=== PATIENT | male | born 2000 | race Caucasian/White ===

== ENCOUNTER 2025-04-25 15:47 | Outpatient (REF) | payer BC, SELFPAY ==
--- OUTSIDE RECORDS SUMMARY | 2025-04-25 14:30 | XMS_ITS | Encounter Summary ---
Author Organization [employer] Address [address] [place] [address] [address] [place] [address] Care Team Providers Care Long Term Care Pharmacist Name Role Phone Sanaz Khan NP Primary Care Provider [phone] Encounter Details Date Type Department Care Team (Late st Contact Info) Description 04/25/2025 2:30 PM EST Office Visit [facility] [address] [place] [address] Sanaz Khan NP [address] [place] [address] Healthcare maintenance (Primary Dx); Graves disease; Constipation, unspecified constipation type; Fatigue, unspecified type; Chronic gastritis without bleeding, unspecified gastritis type Social History Tobacco Use Types Packs/Day Years Used Date Smoking Tobacco: Never Passive Smoke Exposure: Never Smokeless Tobacco: Never Tobacco Cessation:Counseling Given: Not Answered Sex and Gender Information Value Date Recorded Sex Assigned at Male 03/15/2025 11:40 AM EST Legal Sex Male 11:37 AM EST Gender Identity Male 04/12/2025 9:14 AM EST Sexual Orientation Straight 04/12/2025 9: 14 AM EST documented as of this encounter Last Filed Vital Signs Vital Sign Reading Time Taken Comments Blood Pressure 118/78 04/25/2025 2:40 PM EST Pulse 104 04/25/2025 2:40 PM EST Temperature 36.3 C (97.4 F) 04/25/2025 2:40 PM EST Respiratory Rate 16 04/25/2025 2:40 PM EST Oxygen Saturation 99% 04/25/2025 2:40 PM EST Inhaled Oxygen Concentration - - Weight 84.1 kg (185 lb 8 oz) 04/25/2025 2:40 PM EST Height 185.8 cm (6' 1.13 ) 04/25/2025 2:40 PM ES T Body Mass Index 24.39 04/25/2025 2:40 PM EST documented in this encounter Miscellaneous Notes * Assessment & Plan Note - Sanaz Khan NP - 04/25/2025 2:30 PM ESTAssociated Problem(s): Graves disease - Hypothyroidism previously diagnosed, currently off methimazole for two years. Low energy noted, possible recurrence of thyroid dysfunction. Will recheck labs today. Orders: TSH W/Reflex to FT4; Future * Assessment & Plan Note - Sanaz Khan NP - 04/25/2025 2:30 PM ESTAssociated Problem(s): Chronic gastritis without bleeding - Persistent symptoms despite current therapy, including nausea, vomiting, bloating, and decreased appetite. Endoscopy performed April 09, 2025. - Advised to continue esomeprazole and Pepcid as directed by GI. Recommended follow-up with GI clinic due to lack of symptom relief. -Discussed relationship of nervous system activation and digestive health. Encouraged exploring healthy ways to manage stress. -Prescribed psyllium fiber supplement to support regularity and gut microbiome health. Advised dietary modifications: avoid alcohol, spicy, fatty, salty, and acidic foods; focus on vegetables, whole grains, and lean protein. Encouraged hydration. Follow-up in three months to reassess. documented in this encounter Plan of Treatment Scheduled Orders Name Type Priority Associated Diagnoses Orde r Schedule CBC auto differential Lab Routine Healthcare maintenance Fatigue, unspecified type Expected: 04/25/2025 (Approximate), Expires: 04/25/2026 Comprehensive Metabolic Panel Lab Routine Healthcare maintenance Expected: 04/25/2025 (Approximate), Expires: 04/25/2026 TSH W/Reflex to FT4 Lab Routine Graves disease Constipation, unspecified constipation type Fatigue, unspecified type Expected: 04/25/2025 (Approximate), Expires: 04/25/2026 documented as of this encounter Visit Diagnoses Diagnosis Healthcare maintenance- Primary Graves disease Toxic diffuse goiter without mention of thyrotoxic crisis or storm Constipation, unspecified constipation type Fatigue, unspecified type Chronic gastritis without bleeding, unspecified gastritis type documented in this encounter Care Teams Long Term Care Pharmacist Relationship Specialty Start Date End Date Sanaz Khan NP [address] [place] [address] PCP - General Nurse Practitioner 04/25/25 documented as of this encounter
--- OUTSIDE RECORDS SUMMARY | 2025-04-25 16:03 | XMS_ITS | Encounter Summary ---
Author Organization [facility] Address [address] [place] [id number] Care Team Providers Care Labor Utilization Superintendent Name Role Phone Sanaz Khan CORPORATE TRAINING MANAGER Primary Care Provider [phone] Reason for Visit * Reason Onset Date Comments FOLLOW UP APPT 04/06/2025 Encounter Details Date Type Department Care Team ([facility] st Contact Info) Description 04/06/2025 Telephone Gastroenterology - [place] [address] [facility] 175 [facility] [address] [place] [address] Denice Crocker PA 299 [facility] [address] [place] [address] Social History Tobacco Use Types Packs/Day Years Used Date Smoking Tobacco: Never Smokeless Tobacco: Never Interpersonal Safety Answer Date Record ed Physical Abuse Unrecognized value 04/06/2025 Verbal Abuse Unrecognized value 04/06/2025 Sex and Gender Information Value Date Recorded Sex Assigned at Not on file Legal Sex Male 12:40 PM EST Gender Identity Not on file Sexual Orientation Not on file documented as of this encounter Progress Notes * Eva Carrillo - 04/06/2025 10:32 AM EST LEFT MESSAGE FOR PATIENT TO RETURN CALL, PLEASE SCHEDULE 6 MONTH FOLLOW UP APPT. WITH [facility]Y documented in this encounter Plan of Treatment Not on file documented as of this encounter Goals Goal Patient Goal Type Associated Problems Recent Progress Patient-Stated? Author Autogenerat ed Goal Care Plan Autogenerated Problem No Dino Donato documented as of this encounter Visit Diagnoses Not on filedocumented in this encounter Additional Health Concerns Active Problems Noted Date Diagnosed Date Autogenerated Problem 04/05/2025 documented as of this encounter Care Teams Labor Utilization Superintendent Relationship Specialty Start Date End Date Sanaz Khan FNP [address] [place] [address] PCP - General Family Medicine 04/06/25 documented as of this encounter
--- OUTSIDE RECORDS SUMMARY | 2025-04-25 16:03 | XMS_ITS | Encounter Summary ---
Author Organization [facility] Address [address] [place] [id number] Care Team Providers Care Supervisor Machine Setter Name Role Phone Sanaz Khan SENIOR PROJECT ACCOUNTANT Primary Care Provider [phone] Encounter Details Date Type Department Care Team ([facility] st Contact Info) Description 04/09/2025 Results Follow-Up Gastroenterology - [address] [facility] [address] [place] [phone] Cecilio Sweet DO 299 [facility] [address] [place] [address] Social History Tobacco Use Types Packs/Day Years [...] as of this encounter Progress Notes * Mayda Richter MA - 04/17/2025 11:22 AM EST Spoke with pt regarding results and recommendations * Mayda Richter MA - 04/17/2025 10:42 AM EST LM for pt to call back. * Yuni Hazel - 04/11/2025 3:12 PM EST Pt is calling to get verbal clarification on his results. * Mayda Richter MA - 04/11/2025 8:44 AM EST Last read by Seng Haas at 2:48PM on 04/10/2025. * Cecilio Sweet DO - 04/09/2025 12:12 PM EST Please let the patient know that his esophagus and stomach biopsies showed evidence of chronic inflammation secondary to acid. No evidence of inflammation, infection, precancer lesions or allergic conditions have been identified. My recommendation is that he tries esomeprazole 20 mg daily for the next 6 to 8 weeks. I do not recommend that he take Carafate. He can take his Pepcid at night for breakthrough symptoms. If his symptoms persist, he should follow-up with [place] in GI clinic as instructed. documented in this encounter Plan of Treatment Not on file documented as of this encounter Goals Goal Patient Goal Type Associated Problems Recent Progress Patient-Stated? Author Autogenerat ed Goal Care Plan Autogenerated Problem No Tanmay Dino documented as of this encounter Visit Diagnoses Not on filedocumented in this encounter Additional Health Concerns Active Problems Noted Date Diagnosed Date Autogenerated Problem 04/05/2025 documented as of this encounter Care Teams Supervisor Machine Setter Relationship Specialty Start Date End Date Sanaz Khan FNP [address] [place] [id number] PCP - General Family Medicine 04/06/25 documented as of this encounter
--- OUTSIDE RECORDS SUMMARY | 2025-04-25 16:03 | XMS_ITS | Encounter Summary ---
Author Organization [facility] Address [address] [place] [address] Phone Care Team Providers Care Power Operator Name Role Phone Nate Umanzor MD Primary Care Provider [phone] Encounter Details Date Type Department Care Team (Late st Contact Info) Description 12/10/2016 Conversion Encounter [facility] - [address] [address] Social History Tobacco Use Types Packs/Day Years Used Date Smoking Tobacco: Never Assessed Sex and Gender Information Value Date Recorded Sex Assigned at Not on file Legal Sex Male 4:12 PM EDT Gender Identity Male 02/13/2021 7:41 AM EDT Sexual Orientation Not on file documented as of this encounter Plan of Treatment Not on file documented as of this encounter Visit Diagnoses Not on filedocumented in this encounter Care Teams Power Operator Relationship Specialty Start Date End Date Nate Umanzor MD [address] [place] [id number] PCP - General Pediatrics 06/09/17 documented as of this encounter
--- OUTSIDE RECORDS SUMMARY | 2025-04-25 16:03 | XMS_ITS | Clinical Summary ---
Author Organization [facility] Address [address] [place] [address] Phone Care Team Providers Care Coil Winder Repair Name Role Phone Nate Umanzor MD Primary Care Provider [phone] Allergies Active Allergy Reactions Criticality Noted Date Comments Penicillin V Rash Low Medications methimazole 5 MG tablet Take 5 mg by mouth. 1.5 tab Qam, 1 tab at night 3 7 Active Multiple Vitamins-Minera ls (MULTIVITAMIN ADULT EXTRA C PO) Take 1 tablet by mouth daily. Active chlorhexidine 0.12 % solution SWISH AND SPIT 15 ML BY MOUTH IN THE MORNING AND IN THE EVENING FOR 2 WEEKS 3 Active albuterol HFA 108 (90 Base) MCG/ACT inhalerIndicati ons:Bronchospas m Inhale 2 puffs every 4 (four) hours as needed for wheezing or shortness of breath. 2 Units 4 Active Spacer/Aero-Hol ding Chambers deviceIndicatio ns:Bronchospasm Use as directed 1 each 4 Active Active Problems Problem Noted Date Diagnosed Date Bronchospasm 06/03/2023 Assessment & Plan (06/03/2023 12:04 PM EST): Coarse ronchi bilaterally, suspect reactive airway disease vs atypical pneumonia. Will trial albuterol for 1-2 weeks while completing course of cefdinir for sinusitis, if no improvement, will do azithromycin course for walking pneumonia. Weight loss 05/28/2023 Nevus 10/15/2016 Family history of aortic aneurysm 11/13/2015 Family disruption due to divorce 03/11/2015 Scoliosis 03/11/2015 Assessment & Plan (08/16/2017 11:31 AM EDT): Minimal assymetry of shoulders but spine does not appear rotated Graves disease 03/08/2015 Overview (05/28/2023): Followed by [facility] 05/17/17: clinically and biochemically hyperthyroid. Methimazole increased. Maintained on methimazole suppression, but if not in remission over next ~1y then plan permanent treatment (thyroid radioablation) 01/2018 endo, Dr Morfin: euthyroid on bid methimazole.Repeat TFTs with a TSI (thyroid stimulating immunoglobulin) in 3-4 mo and return to endo in 6 mos. 10/03/18: Labs: normal TSH and T4; elevated TSI 09/13- will recheck labs tsh, t4, and TRAbs. Stable on methimazole, will adjust depending on labs. Referral to Dr. Moody (surgeon). Follow up in 6M 05/28/23: Stopped methimazole ~1Y ago. Now with weight loss but not other symptoms of hyperthyroidism. Last TFTs 11/2022 wnl Assessment & Plan (05/28/2023 12:44 PM EST): Stopped methimazole ~1Y ago. Now with weight loss but not other symptoms of hyperthyroidism. Last TFTs 11/2022 wnl Assessment & Plan (12/02/2022 5:24 PM EDT): Weaned off methimazole ~6mo ago. Reports doing well until past few weeks with recurrence of chest pain and palpitations. Reports similar symptoms at onset of diagnosis. No endo follow up since weaning off medication. - Concern for possible recurrence of Graves, although without GI symptoms, no temperature sensitivity, no weight loss. - Will obtain thyroid labs, TSH, T3, t4 Assessment & Plan (05/01/2020 9:18 AM EST): Reduced methimazole dose ~ 12/2019 with goal of re-trying taper off. Assessment & Plan (08/16/2017 9:57 AM EDT): Has had for yrs and has been txed with methimazole 1.5 tab bid [place] [facility] [place] and seasonal allergies 02/10/2015 Migraine 02/10/2015 Assessment & Plan (05/01/2020 9:18 AM EST): Few OLSON related to screens but no overt migraines in past year Assessment & Plan (08/16/2017 9:58 AM EDT): rare Myopia 02/10/2015 Assessment & Plan (05/01/2020 9:19 AM EST): Wears contacts, new Rx in 11/2019 Resolved Problems Problem Noted Date Diagnosed Date Resolved Date Creatinine elevation 04/10/2020 021 Overview (04/10/2020): 04/10/2020 at [facility] pediatric ED; possibly due to OTC supplement or more likely due to hypertension; [facility] nephrology consulted on the phone while in ED, recommended follow-up with them and ED for SBP >150 and likely initiation/trial of labetalol Assessment & Plan (05/01/2020 12:14 PM EST): F/u creatinine normal. He thinks his high BP was from stress related to school and college applications. Encounters Date Type Department Care Team Description 04/04/2025 Telephone [facility] Pediatrics - [address] [address] Jena Rosenbaum LPN Discharge Follow-Up - ED from Last 3 Months Immunizations Immunization Administration Dates Next Due DTaP 09/14/2006, 4,02/16/2003,12/13,2002 DTaP 5 02/15/2004, 3,2002,10/13 HPV Vaccine 9 Valent 08/16/2017,03/13/2016 Hep A, ped/adol 05/01/2020 Hep B, ped/adol 05/18/2003, 4,2002,09/12,2002,2002 Hib (PRP-T) 11/14/2003, 4,02/16/2003,02/16,2002,2002,2002 ,2002 IPV 09/14/2006, 4,05/18/2003,12/13,2002,2002,2002 Influenza 03/03/2006 Influenza, injectable, quadr ivalent, preservative free 05/01/2020,03/13/2016,03/08/2015 Influenza, injectable, trivalent 04/24/2010 Influenza, intranasal, quadrivalent 02/12/2014,1 Influenza, intranasal, trivalent 04/22/2012,02/24 MMR 08/24/2003,08/24/2003 MMRV 09/14/2006 Meningococcal Conj (Menactra) MCV4P 05/01/2020,1 Pneumococcal Conjugate 02/15/2004,2003,02/16/2003,02/16,2002,2002,2002 Tdap 02/12/2014 Varicella 08/24/2003,08/24/2003 Family History Relation Name Status Comments Father Alive Father's Brother Paternal Un rodrigo: [seizures] Mother Alive Mother: [hearin g problem] Other 1 [seizures] Other 2 Alive Other 3 Alive Other 4 Alive [hearing proble m] Social History Tobacco Use Types Packs/Day Years Used Date Smoking Tobacco: Never Smokeless Tobacco: Never Comments:No vaping Alcohol Use Standard Drinks/Week Comments Never 0 (1 standard drink = 0.6 oz pur e alcohol) Hunger/Food Answer Date Recorded In the last 12 months, did y ou or your family ever eat less than you felt you should because there wasn't enough money for food? No 05/01/2020 Stable Housing Answer Date Recorded Are you worried that in the next 2 months you may not have stable housing? No 05/01/2020 Transportation Concerns Answer Date Rec orded In the last 12 months, have you or your family ever had to go without healthcare because you didn't have a way to get there? No 05/01/2020 Hazards in Home Answer Date Recorded Think about the place you li ve. Do you have problems with any of the following? Pests (mice or roaches), mold, no/not working smoke detectors, water leaks, no window guards. No 2020 Financing Utilities Answer Date Recorde d In the last 12 months, has t he electric, gas, oil, or water company threatened to shut off your services in your home? No 05/01/2020 Safety at Home Answer Date Recorded Are you or your family worried about feeling saf e in your home? No 05/01/2020 Outside Support Answer Date Recorded Do you feel that you need mo re support from other people or programs to help you care for yourself or your family? No 05/01/2020 Understanding Health Concerns Answer Da te Recorded Do you need help understandi ng your or your child's healthcare needs (diagnosis, medications, plan, etc.)? No 05/01/2020 Financing Health Concerns Answer Date R ecorded In the last 12 months, was t here a time when your child needed to see a doctor or get medications or supplies but could not because of cost? No 05/01/2020 Missing School or Work Answer Date Philip rded Did you or your child miss s chool or work because of a health problem that could have been avoided? No 05/01/2020 Sex and Gender Information Value Date Recorded Sex Assigned at Not on file Legal Sex Male 4:12 PM EDT Gender Identity Male 02/13/2021 7:41 AM EDT Sexual Orientation Not on file Last Filed Vital Signs Vital Sign Reading Time Taken Comments Blood Pressure 121/86 05/28/2023 9:59 AM EST Pulse 93 06/03/2023 11:07 AM EST Temperature 36.4 C (97.5 F) 06/03/2023 11:07 AM EST Respiratory Rate - - Oxygen Saturation 99% 06/03/2023 11:07 AM EST Inhaled Oxygen Concentration - - Weight 76.7 kg (169 lb 3.2 oz) 06/03/2023 11:07 AM EST Height 184.8 cm (6' 0.75 ) 05/01/2020 8:52 AM ES T Body Mass Index - - Plan of Treatment Health Maintenance Due Date Last Done Comments HIV Screening 2017 Men B Vaccine (1 of 2 - Standard) 2018 Hepatitis C Screening 2020 Hepatitis A Vaccines (2 of 2 - 2-dose series) 10/29/2020 05/01/2020 DTaP,Tdap,and Td Vaccines (7 - Td or Tdap) 02/13/2024 02/12/2014, 09/14/2006, 02/15/2004, Additional history exists Influenza Vaccines (#1) 2024 05/01/19, 03/13/2016, 03/08/2015, Additional history exists COVID-19 Vaccine (2024-05 6 season) 2024 05/18/2021, 10/11/2020, 09/09/2020 Hepatitis B Vaccines Completed 05/18/2003, 05/18/2003, 2002, Additional history exists HIB Vaccines Completed 11/14/2003, 10/25, 02/16/2003, Additional history exists Pneumococcal Vaccine Completed 02/15/2004, 02/15/2004, 02/16/2003, Additional history exists IPV Vaccines Completed 09/14/2006, 04/27, 05/18/2003, Additional history exists MMR Vaccines Completed 09/14/2006, 07/27, 08/24/2003 Varicella Vaccines Completed 09/14/2006, 0 08/24/2003, 08/24/2003 HPV Vaccines Completed 08/16/2017, 03/13/2016 Meningococcal Vaccine Completed 05/01/2020, 014 Insurance [facility] PPO Care Teams Coil Winder Repair Relationship Specialty Start Date End Date Nate Umanzor MD [address] [place] [id number] PCP - General Pediatrics 06/09/17
--- OUTSIDE RECORDS SUMMARY | 2025-04-25 16:03 | XMS_ITS | Encounter Summary ---
Author Organization [facility] Address [address] [place] [address] Phone Care Team Providers Care Asset Protection Assistant Name Role Phone Nate Umanzor MD Primary Care Provider [phone] Encounter Details Date Type Department Care Team (Late st Contact Info) Description 12/02/2016 Conversion Encounter [facility] Pediatrics - [address], [address] [place] [address] Nate Umanzor MD [address] [place] [address] Social History Tobacco Use Types Packs/Day Years [...] on filedocumented in this encounter Care Teams Asset Protection Assistant Relationship Specialty Start Date End Date Nate Umanzor MD [address] [place] [address] PCP - General Pediatrics 06/09/17 documented as of this encounter
--- OUTSIDE RECORDS SUMMARY | 2025-04-25 16:04 | XMS_ITS | Encounter Summary ---
Author Organization [employer] Address [address] [place] [address] [address] [place] [address] Care Team Providers Care Cake Mixer Name Role Phone Sanaz Khan NP Primary Care Provider [phone] Encounter Details Date Type Department Care Team (Latest Contact Info) Description 04/25/2025 Travel Social History Tobacco Use Types Packs/Day Years Used Date Smoking Tobacco: Never Passive Smoke Exposure: Never Smokeless Tobacco: Never Sex and Gender Information Value Date Recorded Sex Assigned at Male 03/15/2025 11:40 AM EST Legal Sex Male 11:37 AM EST Gender Identity Male 04/12/2025 9:14 AM EST Sexual Orientation Straight 04/12/2025 9: 14 AM EST documented as of this encounter Plan of Treatment Not on file documented as of this encounter Visit Diagnoses Not on filedocumented in this encounter Care Teams Cake Mixer Relationship Specialty Start Date End Date Sanaz Khan NP [address] [place] [address] PCP - General Nurse Practitioner 04/25/25 documented as of this encounter
--- OUTSIDE RECORDS SUMMARY | 2025-04-25 16:04 | XMS_ITS | Clinical Summary ---
Author Organization [facility] Address [address] [place] [address] Phone Care Team Providers Care School Psychology Specialist Name Role Phone Sanaz Khan SPEEDY Primary Care Provider [phone] Allergies Active Allergy Reactions Criticality Noted Date Comments Penicillins Hives,Rash Low 11/19/2021 Medications ondansetron ODT (ZOFRAN-ODT) 4 mg disintegrating tablet Let 1 tablet dissolve under the tongue three times daily as needed for nausea or vomiting. 10 tablet 5 Active famotidine (PEPCID) 20 mg tablet Take 1 tablet (20 mg total) by mouth 2 (two) times a day for 15 days. 30 tablet 5 04/18/20 25 sucralfate (CARAFATE) 1 gram tablet Take 1 tablet (1 g total) by mouth 4 (four) times a day for 7 days. 28 each 5 04/10/20 25 Encounters Date Type Department Care Team Description 04/17/2025 Telephone Gastroenterology - [place] [facility] 175 [facility] [address] [place] [address] Alfredo Sweet DO 04/09/2025 Results Follow-Up Gastroenterology - [address] [facility] [address] [place] [address] Alfredo Sweet DO 04/06/2025 11:28 AM EST Anesthesia Event [facility] Endoscopy [address] [place] [address] Cam José MD 04/06/2025 9:26 AM EST - 04/06/2025 11:59 PM EST Hospital Encounter [facility] Endoscopy [address] [place] [address] Cam José MD Cal, Nicolas, DO Kapplan, Jacob A, CRNA Epigastric abdominal pain; Nausea and vomiting, unspecified vomiting type; Abdominal bloating; Gastroesophageal reflux disease, unspecified whether esophagitis present Discharge Disposition: Home or Self Care 04/06/2025 Telephone Gastroenterology - [place] [address] [place] [phone] Denice Crocker PA 04/05/2025 11:10 AM EST Consult Gastroenterology - [address] [facility] [address] [place] [phone] Denice Crocker PA Epigastric abdominal pain (Primary Dx); Nausea and vomiting, unspecified vomiting type; Abdominal bloating; Gastroesophageal reflux disease, unspecified whether esophagitis present 04/03/2025 4:13 PM EST - 04/03/2025 8:01 PM EST Emergency [facility] Emergency [address] [place] [address] Sarahi Burks MD Nausea and vomiting, unspecified vomiting type (Primary Dx); Dehydration Discharge Disposition: Home or Self Care from Last 3 Months Surgical History Surgery Date Site/Laterality Comments ANKLE SURGERY WISDOM TOOTH EXTRACTION Medical History Medical History Date Comments Hyperthyroidism Social History Tobacco Use Types Packs/Day Years Used Date Smoking Tobacco: Never Smokeless Tobacco: Never Tobacco Cessation:Counseling Given: Not Answered Interpersonal Safety Answer Date Record ed Physical Abuse Unrecognized value 04/06/2025 Verbal Abuse Unrecognized value 04/06/2025 Sex and Gender Information Value Date Recorded Sex Assigned at Not on file Legal Sex Male 12:40 PM EST Gender Identity Not on file Sexual Orientation Not on file Last Filed Vital Signs Vital Sign Reading Time Taken Comments Blood Pressure 109/62 04/06/2025 12:01 PM EST Pulse 82 04/06/2025 12:01 PM EST Temperature 36.1 C (97 F) 04/06/2025 10:51 AM EST Respiratory Rate 19 04/06/2025 12:01 PM EST Oxygen Saturation 100% 04/06/2025 12:01 PM EST Inhaled Oxygen Concentration - - Weight 84.1 kg (185 lb 6.4 oz) 04/05/2025 11:17 AM EST Height 185.4 cm (6' 1 ) 04/06/2025 10:51 AM EST Body Mass Index 24.46 04/05/2025 11:17 AM EST Plan of Treatment Health Maintenance Due Date Last Done Comments Meningococcal B Vaccine (1 of 2 - Standard) 2018 Hepatitis A Vaccines (2 of 2 - 2-dose series) 10/29/2020 05/01/2020 DTaP,Tdap,and Td Vaccines (7 - Td or Tdap) 02/13/2024 02/12/2014, 09/14/2006, 02/15/2004, Additional history exists Depression Screening 04/26/2024 COVID-19 Vaccine ( season) 2024 05/18/2021, 10/11/2020, 09/09/2020 Influenza Vaccine (#1) 2024 , 03/13/2016, 03/08/2015, Additional history exists HIV Screening 04/03/2025 Hepatitis C Screening 04/03/2025 Social Influencers of Health Screening 04/03/2025 RSV Immunization Adult Patients (1 - 1-dose 75+ series) 2077 Hepatitis B Vaccines Completed 05/18/2003, 2002, 2002 HIB Vaccines Completed 11/14/2003, 01/25, 2002, Additional history exists Pneumococcal Vaccine: Pediatrics (0 to 5 Years) and At-Risk Patients (6 to 49 Years) Completed 02/15/2004, 02/16/2003, 2002, Additional history exists IPV Vaccines Completed 09/14/2006, 04/27, 2002, Additional history exists MMR Vaccines Completed 09/14/2006, 08/24/2003 Varicella Vaccines Completed 09/14/2006, 08/24/2003 HPV Vaccines Completed 08/16/2017, 03/13/2016 Meningococcal ACWY Vaccine Completed 05/01/2020, RSV Immunization Patients Under 20 months Aged Out No longer eligible based on patient's age to complete this topic Goals Goal Patient Goal Type Associated Problems Recent Progress Patient-Stated? Author Autogenerat ed Goal Care Plan Autogenerated Problem No Dino Donato Procedures Procedure Name Priority Date/Time Associated Diagnosis Comments EGD Routine 04/06/2025 11:40 AM EST Epigastric abdominal pain Nausea and vomiting, unspecified vomiting type Abdominal bloating Gastroesophageal reflux disease, unspecified whether esophagitis present TISSUE EXAM Routine 04/06/2025 11:35 AM EST Epigastric abdominal pain Nausea and vomiting, unspecified vomiting type Abdominal bloating Gastroesophageal reflux disease, unspecified whether esophagitis present CT ABDOMEN PELVIS W CONTRAST STAT 04/03/2025 5:21 PM EST CBC WITH AUTO DIFFERENTIAL STAT 04/03/2025 5:05 PM EST CBC AND DIFFERENTIAL STAT 04/03/2025 5:05 PM EST LIPASE STAT 04/03/2025 12:59 PM EST COMPREHENSIVE METABOLIC PANEL STAT 04/03/2025 12:59 PM EST from Last 3 Months Results * EGD Anesthesia - MAC; [facility] ENDOSCOPY (04/06/2025 11:40 AM EST) Anatomical Region Laterality Modality Endoscopy 04/06/2025 11:1 5 AM EST Impressions 04/06/2025 11:38 AM EST - Normal esophagus. Biopsied. - Normal examined duodenum. Biopsied. - Erythematous mucosa in the stomach. Biopsied. Recommendation: - Discharge patient to home. - Resume previous diet. - Continue present medications. - Await pathology results. - PPI recommendations depending on biopsy results and response to therapy. - F/U with primary GI provider (as instructed prior to the booking of today's procedure) to discuss a long line teamster therapeutic plan. Narrative 04/06/2025 11:38 AM EST [facility] GI Patient Name: Mayank Haas Procedure Date: 04/06/2025 11:15 AM Date of : 2000 Age: 24 Gender: Male Note Status: Finalized Attending MD: Alfredo Sweet DO, [id number] Procedure Date No Time: 04/06/2025 Procedure: Upper GI endoscopy Indications: Heartburn, Nausea with vomiting Providers: Alfredo Sweet DO Referring MD: CHRISTOPHER Rodas Medicines: Monitored Anesthesia Care Complications: No immediate complications. Estimated blood loss: Minimal. Estimated Blood Loss: Estimated blood loss was minimal. Procedure: Pre-Anesthesia Assessment: - - Prior to the procedure, a History and Physical was performed, and patient medications and allergies were reviewed. The patient is competent. The risks and benefits of the procedure and the sedation options and risks were discussed with the patient. All questions were answered and informed consent was obtained. Patient identification and proposed procedure were verified by the physician, the nurse, the anesthesiologist, the ultrasound tester and the scada technician in the pre-procedure area in the endoscopy suite. Mental Status Examination: alert and oriented. Airway Examination: normal oropharyngeal airway and neck mobility. Respiratory Examination: clear to auscultation. CV Examination: normal. Prophylactic Antibiotics: The patient does not require prophylactic antibiotics. Prior Anticoagulants: The patient has taken no anticoagulant or antiplatelet agents. ASA Grade Assessment: II - A patient with mild systemic disease. After reviewing the risks and benefits, the patient was deemed in satisfactory condition to undergo the procedure. The anesthesia plan was to use monitored anesthesia care (MAC). Immediately prior to administration of medications, the patient was re-assessed for adequacy to receive sedatives. The heart rate, respiratory rate, oxygen saturations, blood pressure, adequacy of pulmonary ventilation, and response to care were monitored throughout the procedure. The physical status of the patient was re-assessed after the procedure. After obtaining informed consent, the endoscope was passed under direct vision. Throughout the procedure, the patient's blood pressure, pulse, and oxygen saturations were monitored continuously. The Olympus Gastroscope was introduced through the mouth, and advanced to the third part of duodenum. The upper GI endoscopy was accomplished without difficulty. The patient tolerated the procedure well. Findings: The esophagus was normal. Biopsies were taken with a cold forceps for histology. The examined duodenum was normal. Biopsies were taken with a cold forceps for histology. Diffuse moderately erythematous mucosa without bleeding was found in the stomach. Biopsies were taken with a cold forceps for histology. Procedure Code(s): --- Professional --- 22704, Esophagogastroduodenoscopy, flexible, transoral; with biopsy, single or multiple Diagnosis Code(s): --- Professional --- K31.89, Other diseases of stomach and duodenum R12, Heartburn R11.2, Nausea with vomiting, unspecified CPT copyright 2020 [employer]. All rights reserved. The codes documented in this report are preliminary and upon vp sales review may be revised to meet current compliance requirements. ALFREDO Sweet DO 04/06/2025 11:38:49 AM This report has been signed electronically.Alfredo Sweet DO Number of Addenda: 0 Note Initiated On: 04/06/2025 11:15 AM Scope In: Scope Out: Endoscopy Department at [facility] - [address] [place] [id number] Procedure Note Alfredo Sweet DO - 04/06/2025 [facility] GI Patient Name: Mayank Haas Procedure Date: 04/06/2025 11:15 AM Date of : 2000 Age: 24 Gender: Male Note Status: Finalized Attending MD: Alfredo Sweet DO, [id number] Procedure Date No Time: 04/06/2025 Procedure: Upper GI endoscopy Indications: Heartburn, Nausea with vomiting Providers: Alfredo Sweet DO Referring MD: CHRISTOPHER Rodas Medicines: Monitored Anesthesia Care Complications: No immediate complications. Estimated blood loss: Minimal. Estimated Blood Loss: Estimated blood loss was minimal. Procedure: Pre-Anesthesia Assessment: - - Prior to the procedure, a History and Physicalwas performed, and patient medications and allergieswere reviewed. The patient is competent. The risks and benefits of the procedure and the sedation optionsand risks were discussed with the patient. Allquestions were answered and informed consent was obtained. Patient identification and proposed procedure were verified by the physician, the nurse, the anesthesiologist, the ultrasound tester and thetechnician in the pre-procedure area in the endoscopy suite. Mental Status Examination: alert and oriented.Airway Examination: normal oropharyngeal airway and neck mobility. Respiratory Examination: clear to auscultation. CV Examination: normal. Prophylactic Antibiotics: The patient does not requireprophylactic antibiotics. Prior Anticoagulants: The patient has taken no anticoagulant or antiplatelet agents. ASA Grade Assessment: II - A patient with mild systemic disease. After reviewing the risks and benefits,the patient was deemed in satisfactory condition to undergo the procedure. The anesthesia plan was touse monitored anesthesia care (MAC). Immediately priorto administration of medications, the patient was re-assessed for adequacy to receive sedatives. The heart rate, respiratory rate, oxygen saturations, blood pressure, adequacy of pulmonary ventilation,and response to care were monitored throughout the procedure. The physical status of the patient was re-assessed after the procedure. After obtaining informed consent, the endoscope was passed under direct vision. Throughout theprocedure, the patient's blood pressure, pulse, and oxygen saturations were monitored continuously. TheOlympus Gastroscope was introduced through the mouth, and advanced to the third part of duodenum. The upperGI endoscopy was accomplished without difficulty. The patient tolerated the procedure well. Findings: The esophagus was normal. Biopsies were taken witha cold forceps for histology. The examined duodenum was normal. Biopsies weretaken with a cold forceps for histology. Diffuse moderately erythematous mucosa without bleeding was found in the stomach. Biopsies weretaken with a cold forceps for histology. Procedure Code(s): --- Professional --- 95329, Esophagogastroduodenoscopy, flexible, transoral; with biopsy, single or multiple Diagnosis Code(s): --- Professional --- K31.89, Other diseases of stomach and duodenum R12, Heartburn R11.2, Nausea with vomiting, unspecified CPT copyright 2020 [employer]. All rights reserved. The codes documented in this report are preliminary and upon vp sales reviewmay be revised to meet current compliance requirements. ALFREDO Sweet DO 04/06/2025 11:38:49 AM This report has been signed electronically.Alfredo Sweet DO Number of Addenda: 0 Note Initiated On: 04/06/2025 11:15 AM Scope In: Scope Out: Endoscopy Department at [facility] - [address] [place] [phone] IMPRESSION: - Normal esophagus. Biopsied. - Normal examined duodenum. Biopsied. - Erythematous mucosa in the stomach. Biopsied. Recommendation: - Discharge patient to home. - Resume previous diet. - Continue present medications. - Await pathology results. - PPI recommendations depending on biopsy resultsand response to therapy. - F/U with primary GI provider (as instructed priorto the booking of today's procedure) to discuss a intermediate therapeutic plan. Alfredo Sweet DO GI~PROCEDURE ORDERABLES Final Re sult * Tissue exam (04/06/2025 11:35 AM EST) Addendum Part B: Immunohistochemistry: Helicobacter pylori: negative. 12:45 PM [facility] Addendum electronically signed by Chey Capone MD on 04/10/2025 at 1245 EST Final Diagnosis A. Small Intestine, Duodenum, biopsies: - Duodenal mucosa with preserved villi and no specific pathologic changes. - Negative for increased intraepithelial lymphocytes. B. Stomach, biopsies random gastric: - Gastric antral mucosa with mild chronic gastritis. - Gastric oxyntic mucosa with patchy mild chronic gastritis. Note: Immunostain for Helicobacter pylori will be performed to rule out Helicobacter pylori infection in the setting of chronic gastritis as Helicobacter pylori organisms are not morphologically apparent on H&E stained slide. C. Esophagus, biopsies esophagus: - Esophageal squamous mucosa with few intraepithelial eosinophils (up to 3 eosinophils per hpf). 12:45 PM EST [facility] at 1124 EST Gross Description A. Small Intestine, Duodenum, biopsies: Labeled duodenum biopsy . Received in formalin are four irregular valdes mucosal tissue fragments, ranging from less than 0.1 cm to 0.3 cm in greatest dimension, which are wrapped in paper and submitted in toto in one cassette, four pieces, multiple levels. B. Stomach, biopsies random gastric: Labeled stomach biopsy . Received in formalin are five irregular valdes mucosal tissue fragments, ranging from 0.2 cm to 0.4 cm in greatest dimension, which are wrapped in paper and submitted in toto in one cassette, five pieces, multiple levels. C. Esophagus, biopsies esophagus: Labeled esophagus biopsy . Received in formalin are four irregular pink-white mucosal tissue fragments, each measuring approximately 0.2 cm in greatest dimension, which are wrapped in paper and submitted in toto in one cassette, four pieces, multiple levels. MARLENY 12:45 PM EST [facility] Disclaimer NOTE: The immunohistochemical tests and in situ hybridization tests were developed and their performance characteristics were determined by [facility]. They have not been cleared or approved by the U.S. Food and Drug Administration. The FDA has determined that such clearance or approval is not necessary. These tests are used for clinical purposes. They should not be regarded as investigational or for research. This laboratory is certified under the Clinical Laboratory Improvement Amendments of 1988 (CLIA) as qualified to perform high complexity clinical laboratory testing. (controls appropriate) Unless otherwise specified, all tissue is 10% NB formalin fixed and paraffin embedded. 12:45 PM EST [facility] Tissue Duodenal structure / Unknown 04/06/2025 11:35 AM EST 04/06/2025 1:24 PM EST Tissue specimen (specimen) Stomach structure / Unknown 04/06/2025 11:36 AM EST 04/06/2025 1:24 PM EST Tissue specimen (specimen) Esophageal structure / Unknown 04/06/2025 11:37 AM EST 04/06/2025 1:24 PM EST Alfredo Sweet DO LAB PATHOLOGY ORDERABLES Edited Result - Final [facility] [address] [place] [address], * CT Abdomen Pelvis w Contrast (04/03/2025 5:21 PM EST) Anatomical Region Laterality Modality Body Computed Tomogra phy 04/03/2025 5:46 PM EST Impressions 04/03/2025 5:46 PM EST No acute findings. This document has been electronically signed by: Melania Miguel MD on 04/03/2025 17:46:09 Narrative 04/03/2025 5:46 PM EST INDICATION: Abdominal pain, acute, no prior medical history CT abdomen and pelvis with contrast Comparison: None provided Findings: The lung bases are clear. The gallbladder and solid organs are within normal limits. No renal stones. No bowel obstruction, pneumoperitoneum, or pneumatosis. There are numerous small mesenteric lymph nodes, likely inflammatory. Pelvic contents unremarkable. Normal appendix. The bones are intact. Procedure Note Melania Disla MD - 04/03/2025 INDICATION: Abdominal pain, acute, no prior medical history CT abdomen and pelvis with contrast Comparison: None provided Findings: The lung bases are clear. The gallbladder and solid organs are within normal limits. No renal stones. No bowel obstruction, pneumoperitoneum, or pneumatosis. There arenumerous small mesenteric lymph nodes, likely inflammatory. Pelvic contents unremarkable. Normal appendix. The bones are intact. IMPRESSION: No acute findings. This document has been electronically signed by: Melania Miguel MD on 04/03/2025 17:46:09 Sarahi Burks MD IMG CT PROCEDURES Final Result * (ABNORMAL) CBC auto differential (04/03/2025 5:05 PM EST) WBC 8.3 4.8 - 10.8 K/mcL LAB HEMETOLOGY METHOD 04/03/2025 5:34 PM [facility] RBC 6.00(H) 4.50 - 5.50 M/mcL LAB HEMETOLOGY METHOD 04/03/2025 5:34 PM [facility] Hemoglobin 18.3(H) 13.5 - 17.5 g/dL LAB HEMETOLOGY METHOD 04/03/2025 5:34 PM [facility] Hematocrit 50.3 42.0 - 54.0 % LAB HEMETOLOGY METHOD 04/03/2025 5:34 PM [facility] MCV 84.0 79.0 - 98.0 FL LAB HEMETOLOGY METHOD 04/03/2025 5:34 PM [facility] MCH 30.6 27.0 - 32.0 pcg LAB HEMETOLOGY METHOD 04/03/2025 5:34 PM [facility] MCHC 36.4 32.0 - 37.0 g/dL LAB HEMETOLOGY METHOD 04/03/2025 5:34 PM [facility] RDW 11.9 11.0 - 15.0 % LAB HEMETOLOGY METHOD 04/03/2025 5:34 PM [facility] Platelets 275 130 - 400 K/mcL LAB HEMETOLOGY METHOD 04/03/2025 5:34 PM [facility] MPV 10.0 7.0 - 11.0 FL LAB HEMETOLOGY METHOD 04/03/2025 5:34 PM [facility] NRBC 0.0 <1.0 % LAB HEMETOLOGY METHOD 04/03/2025 5:34 PM [facility] NRBC Absolute 0.00 <0.10 K/mcL LAB HEMETOLOGY METHOD 04/03/2025 5:34 PM [facility] Neutrophils Relative 54.1 % LAB HEMETOLOGY METHOD 04/03/2025 5:34 PM [facility] Lymphocytes Relative 29.0 % LAB HEMETOLOGY METHOD 04/03/2025 5:34 PM [facility] Monocytes Relative 12.1 % LAB HEMETOLOGY METHOD 04/03/2025 5:34 PM [facility] Eosinophils Relative 3.6 % LAB HEMETOLOGY METHOD 04/03/2025 5:34 PM [facility] Basophils Relative 0.6 % LAB HEMETOLOGY METHOD 04/03/2025 5:34 PM [facility] Immature Granulocytes Relative 0.6 % LAB HEMETOLOGY METHOD 04/03/2025 5:34 PM [facility] Neutrophils Absolute 4.47 1.50 - 7.00 K/mcL LAB HEMETOLOGY METHOD 04/03/2025 5:34 PM [facility] Lymphocytes Absolute 2.40 1.00 - 5.00 K/mcL LAB HEMETOLOGY METHOD 04/03/2025 5:34 PM EST [facility] Monocytes Absolute 1.00 0.20 - 1.00 K/[facility] LAB HEMETOLOGY METHOD 04/03/2025 5:34 PM EST [facility] Eosinophils Absolute 0.30 0.00 - 0.50 K/mcL LAB HEMETOLOGY METHOD 04/03/2025 5:34 PM EST [facility] Basophils Absolute 0.05 0.00 - 0.20 K/[facility] HEMETOLOGY METHOD 04/03/2025 5:34 PM EST [facility] Immature Granulocytes Absolute 0.05(H) 0.00 - 0.03 K/[facility] HEMETOLOGY METHOD 04/03/2025 5:34 PM EST [facility] Blood Venous blood specimen / Unknown Venipuncture / Unknown 04/03/2025 5:05 PM EST 04/03/2025 5:28 PM EST us Sarahi Burks MD LAB BLOOD ORDERABLES Final Res ult [facility] [address] [place] [address], [place] [phone] * Lipase (04/03/2025 12:59 PM EST) Lipase 27 12 - 53 unit/L 04/03/2025 2:33 PM EST [facility] Blood Venous blood specimen / Unknown Venipuncture / Unknown 04/03/2025 12:59 PM EST 04/03/2025 2:33 PM EST us Sarahi Burks MD LAB BLOOD ORDERABLES Final Res ult [facility] [address] [place] [address], [place] [phone] * (ABNORMAL) Comprehensive metabolic panel (04/03/2025 12:59 PM EST) Sodium 131(L) 133 - 145 mmol/L 04/03/2025 2:33 PM [facility] Potassium 4.8 3.5 - 5.5 mmol/L 04/03/2025 2:33 PM [facility] Chloride 93(L) 96 - 110 mmol/L 04/03/2025 2:33 PM [facility] CO2 28 21 - 32 mmol/L 04/03/2025 2:33 PM [facility] Anion Gap 10 3 - 11 04/03/2025 2:33 PM [facility] Glucose 93 70 - 100 mg/dL 04/03/2025 2:33 PM [facility] BUN 19 5 - 25 mg/dL 04/03/2025 2:33 PM [facility] Creatinine 1.49(H) 0.70 - 1.30 mg/dL 04/03/2025 2:33 PM [facility] eGFR 68 >=60 mL/min/1. 73m2 04/03/2025 2:33 PM [facility] Comment:Calculation based on the Chronic Kidney Disease Epidemiology Collaboration (CKD-EPI) equation refit without adjustment for race. BUN/Creatinine Ratio 12.8 04/03/2025 2:33 PM [facility] Calcium 9.7 8.5 - 10.5 mg/dL 04/03/2025 2:33 PM [facility] AST (SGOT) 27 10 - 42 unit/L 04/03/2025 2:33 PM [facility] ALT (SGPT) 48 10 - 60 unit/L 04/03/2025 2:33 PM [facility] Alkaline Phosphatase 88 42 - 121 unit/L 04/03/2025 2:33 PM [facility] Total Protein 7.9 6.0 - 8.0 g/dL 04/03/2025 2:33 PM EST [facility] Albumin 5.4(H) 3.2 - 5.0 g/dL 04/03/2025 2:33 PM EST [facility] Total Bilirubin 0.9 0.0 - 1.4 mg/dL 04/03/2025 2:33 PM EST [facility] Blood Venous blood specimen / Unknown Venipuncture / Unknown 04/03/2025 12:59 PM EST 04/03/2025 2:33 PM EST us Sarahi Burks MD LAB BLOOD ORDERABLES Final Res ult [facility] [address] [place] [address], from Last 3 Months Additional Health Concerns Active Problems Noted Date Diagnosed Date Autogenerated Problem 04/05/2025 Insurance [facility] Care Teams School Psychology Specialist Relationship Specialty Start Date End Date Sanaz Khan FNP [address] [place] [phone] PCP - General Family Medicine 04/06/25
--- OUTSIDE RECORDS SUMMARY | 2025-04-25 16:04 | XMS_ITS | Clinical Summary ---
Author Organization [employer] Address [address] [facility] [address] [place] [address] Care Team Providers Care Transistor Tester Name Role Phone Sanaz Khan NP Primary Care Provider [phone] Allergies Active Allergy Reactions Criticality Noted Date Comments Penicillins Hives,Rash Low 11/19/2021 Medications famotidine (Pepcid) 20 MG tablet Take 20 mg by mouth Once per day. 5 Active albuterol 108 (90 Base) MCG/ACT inhaler Inhale 2 puffs every 4 (four) hours if needed. 4 Active sucralfate (Carafate) 1 g tablet Take 1 g by mouth before breakfast, before lunch, before evening meal, and at bedtime. 5 Active methIMAzole (Tapazole) 5 MG tablet Take 5 mg by mouth Once per day. 7 Active psyllium (Metamucil Smooth Texture) 58.6 % powderIndications :Constipation, unspecified constipation type Take 5.12 g (3 g of fiber) by mouth 2 times daily. 283 g 11 5 04/25/20 26 Active Active Problems Problem Noted Date Diagnosed Date Chronic gastritis without bleeding 04/25/2025 Assessment & Plan (04/25/2025 3:43 PM EST): - Persistent symptoms despite current therapy, including [...] hydration. Follow-up in three months to reassess. Bronchospasm 06/03/2023 Scoliosis 03/11/2015 Graves disease 03/08/2015 Overview (04/24/2025): Followed by Vinicio Rodrigues 05/17/17: clinically and biochemically hyperthyroid. Methimazole increased. Maintained on methimazole suppression, but if not in remission over next ~1y then plan permanent treatment (thyroid radioablation) 01/2018 Dr Navjot rodrigues: euthyroid on bid methimazole.Repeat TFTs with a [...] Last TFTs 11/2022 wnl Assessment & Plan (04/25/2025 3:43 PM EST): - Hypothyroidism previously diagnosed, currently off methimazole for two years. Low energy noted, possible recurrence of thyroid dysfunction. Will recheck labs today. Orders: TSH W/Reflex to FT4; Future Migraine 02/10/2015 Myopia 02/10/2015 Environmental and seasonal allergies 02/10/2015 Encounters Date Type Department Care Team Description 04/25/2025 2:30 PM EST Office Visit [facility] [address] [place] [phone] Sanaz Khan NP Healthcare maintenance (Primary Dx); Graves disease; Constipation, unspecified constipation type; Fatigue, unspecified type; Chronic gastritis without bleeding, unspecified gastritis type 04/25/2025 Travel 04/16/2025 Patient Outreach [facility] [address] [place] [phone] Sanaz Khan NP Pre-visit Planning (Pre-visit planning - LVM ) from Last 3 Months Immunizations Immunization Administration Dates Next Due DTaP 09/14/2006 DTaP, 5 pertussis antigens 02/15/2004,,2002,10/13 HPV 9-Valent 08/16/2017,03/13/2016 Hep A, ped/adol, 2 dose 05/01/2020 Hep B, Adolescent or Pediatric 05/18/2003,2002,2002 Hib (PRP-T) 11/14/2003, 3,2002,10/13 IPV 09/14/2006, 4,2002,10/13 Influenza injectable quadriv alent preservative free 05/01/2020,03/13/2016,03/08/2015 Influenza live intranasal qu adrivalent LIAV4 02/12/2014,01/30/2013 Influenza, IIV3, injectable 04/24/2010 Influenza, Unspecified 03/03/2006 Influenza, live, intranasal 04/22/2012, 1 MMR 08/24/2003 MMRV 09/14/2006 Meningococcal MCV4P [id number] 05/01/2020,02/13/20 14 Pneumococcal Conjugate PCV 7 02/15/2004, 02/16/2003,2002,10/13 Tdap 02/12/2014 Varicella 08/24/2003 Social History Tobacco Use Types Packs/Day Years Used Date Smoking Tobacco: Never Passive Smoke Exposure: Never Smokeless Tobacco: Never Tobacco Cessation:Counseling Given: Not Answered Sex and Gender Information Value Date Recorded Sex Assigned at Male 03/15/2025 11:40 AM EST Legal Sex Male 11:37 AM EST Gender Identity Male 04/12/2025 9:14 AM EST Sexual Orientation Straight 04/12/2025 9: 14 AM EST Last Filed Vital Signs Vital Sign Reading [...] Mass Index 24.39 04/25/2025 2:40 PM EST Plan of Treatment Health Maintenance Due Date Last Done Comments Chlamydia and Gonorrhea Screening 2002 Depression Screening 2002 HIV Screening 2002 SDOH Screening 2002 Alcohol/Substance Use Screening 2014 Family Planning (PISQ) 2017 Meningococcal B Vaccine (1 of 2 - Standard) 2018 Hepatitis C Screening 2020 Hepatitis A Vaccines (2 of 2 - 2-dose series) 10/29/2020 05/01/2020 DTaP/Tdap/Td Vaccines (7 - Td or Tdap) 02/13/2024 02/12/2014, 09/14/2006, 02/15/2004, Additional history exists COVID-19 Vaccine ( season) 2024 05/18/2021, 10/11/2020, 09/09/2020 Influenza Vaccine (#1) 2024 , 03/13/2016, 03/08/2015, Additional history exists Disability Screening 04/25/2026 04/25/2025 Tobacco Screening 04/25/2026 04/25/2025 Zoster Vaccines (1 of 2) 2052 RSV Patients and Patients Aged 60 years or older (1 - 1-dose 75+ series) 2077 Hepatitis B Vaccines Completed 05/18/2003, 2002, 2002 HIB Vaccines Completed 11/14/2003, 01/25, 2002, Additional history exists Pneumococcal Vaccine: Pediatrics (0 to 5 Years) and At-Risk Patients (6 to 49) Years Aged Out 02/15/2004, 02/16/2003, 2002, Additional history exists No longer eligible based on patient's age to complete this topic IPV Vaccines Completed 09/14/2006, 04/27, 2002, Additional history exists HPV Vaccines Completed 08/16/2017, 03/13/2016 Meningococcal Vaccine Completed 05/01/2020, 014 RSV under 20 months Aged Out No longe r eligible based on patient's age to complete this topic Rotavirus Vaccines Aged Out No longer eligible based on patient's age to complete this topic Insurance [facility] PPO Care Teams Transistor Tester Relationship Specialty Start Date End Date Sanaz Khan NP [address] [place] [id number] PCP - General Nurse Practitioner 04/25/25
[2025-04-25 18:02] LABS: MANUAL DIFF FLAG NO
[2025-04-25 18:06] LABS: Hematocrit 48.8 % (42.0-52.0); Hemoglobin 17.5 g/dl (14.0-18.0); Imm Gran Abs Auto 0.09 X10*3/uL (0.00-0.03); Imm Gran Pct Auto 0.9 % (0.0-0.4); Lymphocytes Absolute Auto 3.2 X10*3/uL (1.2-4.9); Mean Corpuscular HGB Conc 35.9 g/dl (31.0-36.0); Mean Corpuscular Hemoglobin 30.6 pg (27.0-33.0); Mean Corpuscular Volume 85.3 fL (80.0-98.0); NRBC Abs Auto 0.000 X10*3/uL (0.0-0.012); NRBC Pct Auto 0.0 /100WBC (0.0-0.2); Platelet Count 289 X10*3/uL (160-400); Red Blood Count 5.72 X10*6/uL (4.60-5.80); White Blood Count 9.9 X10*3/uL (4.8-10.8)
[2025-04-25 18:35] LABS: Alanine Aminotransferase 59 U/L (0-40); Albumin Level 5.2 g/dL (3.5-5.0); Alkaline Phosphatase 78 U/L (39-117); Anion Gap 13 (12-20); Aspartate Amino Transferase 37 U/L (5-37); Blood Urea Nitrogen 19 mg/dL (9-16); Calcium 10.1 mg/dL (8.4-10.2); Carbon Dioxide 26 mmol/L (22-29); Chloride 98 mmol/L (96-108); Estimated Glomerular Filt Rate > 60; Potassium 4.7 mmol/L (3.3-5.1); Sodium 132 mmol/L (135-145); Total Protein 7.9 g/dL (6.5-8.0)
[2025-04-25 19:21] LABS: Free T4 (Free Thyroxine) 1.07 ng/dL (0.71-1.85)
== END 2025-04-25 15:48 | disposition home or self-care (01) ==
LOC: HO.HHCL 15:47
DX: Z00.00 Encounter for general adult medical examination without abnormal findings (principal); E05.00 Thyrotoxicosis with diffuse goiter without thyrotoxic crisis or storm
CPT/HCPCS: 36415; 80053; 84439; 84443; 85025